=== PATIENT | female | born 1955 | race Caucasian/White ===

== ENCOUNTER 2023-07-29 08:00 | Outpatient (CLI) | payer BC, MEDICARE ==
--- NOTE | 2023-07-29 11:56 | XRAY Report ---
PROCEDURE: Shoulder 2+V RT INDICATIONS: SPRAIN OF RIGHT SHOULDER TECHNIQUE: 3 views of the shoulder were acquired. COMPARISON: None. FINDINGS: Bones: No fractures or dislocations. No suspicious bony lesions. Visualized ribs appear intact. Soft tissues: No suspicious soft tissue calcifications. The visualized lungs are within normal limi ts. IMPRESSION: No acute fracture. No osseous lesion. If symptoms and/or clinical suspicion for patholog y continue, further assessment with repeat plain films, or advanced imaging (e.g., CT, MRI, or bone s can) is recommended for further assessment. Reviewed by: Zach Lui MD on 07/29/2023 11:54 AM [facility] Approved by: Zach Lui MD on 07/29/2023 11:54 AM [facility] Station ID: [id number]
== END 2023-07-29 23:59 | disposition home or self-care (01) ==
LOC: DI.S 08:00
PROVIDERS: ATTEND Physician Assistant Medical
DX: S43.491A Other sprain of right shoulder joint, initial encounter (principal)